=== PATIENT | male | born 1995 | race Caucasian/White ===

== ENCOUNTER 2021-04-08 12:58 | Emergency (ER) | payer BC, OTHER ==
[~2021-04-08] VITALS: Ht 188 cm; Wt 83.9 kg
[2021-04-08 15:34] VITALS: BP 122/84
[2021-04-08] MEDS ORDERED: METHOCARBAMOL750 MG PO (15:58)
== END 2021-04-08 15:35 | disposition home or self-care (01) ==
LOC: ER 12:58
DX: M54.2 Cervicalgia (principal); R51.9 Headache, unspecified; Z98.890 Other specified postprocedural states; V49.09XA Driver injured in collision with other motor vehicles in nontraffic accident, initial encounter; Y93.89 Activity, other specified; Y92.89 Other specified places as the place of occurrence of the external cause; Y99.8 Other external cause status